=== PATIENT | male | born 1955 | race Caucasian/White ===

== ENCOUNTER 2023-10-11 16:16 | Inpatient (IN) | payer MEDICARE, OTHER, SELFPAY ==
[2023-10-11] VITALS (10 sets, daily range): BP systolic 120–166; BP diastolic 61–92; BMI 34.1; BMI 32.4
[2023-10-11 11:51] LABS: % Eosinophils 1.2 % (0-6); % Immature Granulocytes 0.4 % (0-0.5); % Lymphocytes 23.3 % (20.5-51.1); % Monocytes 6.8 % (1.7-9.3); % Neutrophils 67.3 % (42.2-75.2); Absolute Basophils 0.1 10^3/uL (0-0.2); Absolute Eosinophils 0.1 10^3/uL (0-0.7); Absolute Lymphocytes 1.7 10^3/uL (1.2-3.4); Absolute Monocytes 0.5 10^3/uL (0.1-0.6); Absolute Neutrophils 4.9 10^3/uL (1.4-6.5); Hematocrit 44.6 % (39.0-52.0); Hemoglobin 14.9 g/dL (13.0-18.0); Mean Corp Hgb Conc. 33.4 g/dL (33.0-37.0); Mean Corpuscular Hgb 27.8 pg (27.0-31.0); Mean Corpuscular Volume 83.2 fL (80.0-94.0); Mean Platelet Volume 9.5 fL (7.4-10.4); Nucleated Red Blood Cells % 0 % (-); Platelet Count 206 10^3/uL (130-400); Red Blood Cell Count 5.36 10^6/uL (4.70-6.10); Red Cell Dist. Width 13.6 % (11.5-14.5); White Blood Cell Count 7.3 10^3/uL (4.8-10.8)
[2023-10-11 12:17] LABS: ALT (SGPT) 29 U/L (0-50); AST (SGOT) 29 U/L (17-59); Albumin 4.8 g/dl (3.5-5.0); Alkaline Phosphatase 79 U/L (38-126); Blood Urea Nitrogen 22 mg/dl (9-20); Calcium 10.2 mg/dl (8.4-10.2); Carbon Dioxide 25 mmol/L (22-30); Chloride 102 mmol/L (98-107); Glucose 118 mg/dl (70-99); Potassium 5.1 mmol/L (3.5-5.1); Sodium 137 mmol/L (135-145); Total Bilirubin 0.8 mg/dl (0.2-1.3); Total Protein 7.8 g/dl (6.3-8.2); Troponin I < 0.012 ng/ml; eGFR > 60.00
--- NOTE | 2023-10-11 14:15 | ED.GENMED ---
History of Present Illness
General
Chief Complaint: Chest Pain
Source: patient and family
Exam Limitations: none
Time Seen by Provider: 10/11/23 12:50
Nursing documentation reviewed up to this point in time: agreed with
Travel History
Have you had any contact with someone who has COVID-19?: No
Do you have any symptoms of coronavirus? Fever > 100 degrees, chills, cough, shortness of breath, sore throat, loss of taste or smell, muscle aches, or headache?: No
History of Present Illness
History of Present Illness:
67-year-old male with past ministry of CAD status post stent last year, hyperlipidemia presenting to the emergency department today with concerns of chest pain a few days ago went to [facility] at the time had elevated troponin levels and
was admitted to get a heart catheterization but left AMA. Levels were elevated to 5 times the normal limit. He claims that his initial severe chest pain has improved but he does have some mild ongoing left-sided chest pain no shortness of breath
or additional concerns at this time.
Review of Systems
Review of Systems
Allergies reviewed?: Yes
All Other Systems: ROS reviewed and negative except as documented in HPI and ROS
Phy Exam
Physical Exam
Physical Exam:
GENERAL: Alert , in no apparent distress
EYE: pupils equal and reactive
NECK: Supple, no significant adenopathy.
ENT: o/p clr, mmm.
CARDIAC: Regular rate and rhythm .
LUNGS: Clear breath sounds bilaterally, no acute respiratory distress, no wheezes/rales/rhonchi
ABDOMEN: Soft, without focal tenderness, no r/g, no cvat
NEUROLOGICAL: Alert and oriented, no focal neuro deficits
SKIN: Warm and dry, skin intact.
MUSCULOSKELETAL: No edema, well perfused.
PSYCH: Normal and appropriate interaction.
Scores
Heart Score for Chest Pain Patients
STEMI patient?: No
History: Moderately Suspicious
ECG: Nonspecific Repolarization
Age: >/= 65 years
Risk Factors: >/= 3 Risk Factors or History of CAD
Troponin: </= Normal Limit
Heart Score for Chest Pain Patients: 6
Heart Score Risk: 20.3% MACE over next 6 weeks
Course
Orders/Labs/Results
Orders:
Orders
10/11/23 11:31
Electrocardiogram (*1) Urgent
Reason for Study: Chest Pain
10/11/23 11:32
EKG- Treatment ONCE
10/11/23 11:42
Complete Blood Count/With Diff Urgent
Comprehensive Metabolic Panel Urgent
Troponin I Urgent
10/11/23 12:53
Chest [CR Chest - 2 Views ] Urgent
Comment:
Reason For Exam: cp
Abnormal Lab Results
10/11/23
11:42
BUN 22 H mg/dl
(9-20)
Glucose 118 H mg/dl
(70-99)
10/11/23 11:42
10/11/23 11:42
Vital Signs
Initial and Last Documented VS:
Initial Vital Signs
Temp Pulse Resp BP Pulse Ox
98.1 F 62 18 160/80 100
10/11/23 11:32 10/11/23 11:32 10/11/23 11:32 10/11/23 11:32 10/11/23 11:32
Last Documented Vital Signs
Temp Pulse Resp BP Pulse Ox
98.1 F 62 18 160/80 99
10/11/23 11:32 10/11/23 11:32 10/11/23 11:32 10/11/23 11:32 10/11/23 13:27
MDM/Problems Addressed
MDM/Problems Addressed:
67-year-old male presenting to the emergency department today with concerns of left-sided chest pain ongoing today severe episode a few days ago diagnosed with likely heart attack was scheduled to the heart catheterization today at [facility]
Hospital but left AMA to come here. Here patient generally well-appearing claims have mild symptoms at this time EKG is nonischemic and troponin is negative. Old records were received that did show elevated troponin levels a few days ago.
Considering his history and potential cardiac event at that time plan to admit for further evaluation and cardiology consultation.
*Critical Care Note
Total Time (30-74mins, 75-104mins- exclusive of procedures): Not Applicable
ED Attending Note
-
Portions of this chart may have been created with voice recognition software.� Occasional wrong word or��sound alike� substitutions may have occurred due to the inherent limitations of voice recognition software.
Discharge Plan
Departure
Patient Disposition: Admit
Date of Disposition: 10/11/23
Time of Disposition: 14:17
Admit to: Telemetry
Admit to doctor: [place]
Presentation/result/management discussed w/ accepting MD/DO: Hospitalist
Patient with high blood pressure during this ER visit?: No
Condition: Good
Covid-19: Not Applicable
Discharge Problem:
Chest pain
Prescriptions:
No Action
tamsulosin 0.4 mg capsule
0.4 mg PO DAILY
amlodipine 10 mg tablet
5 mg PO DAILY
olmesartan 40 mg tablet
40 mg PO DAILY
Toujeo Max U-300 SoloStar 300 unit/mL (3 mL) insulin pen
40 unit SC HS
ascorbic acid (vitamin C) [Vitamin C] 1,000 mg Tablet
1,000 mg PO QPM
cyanocobalamin (vitamin B-12) 1,000 mcg Tablet
1,000 mcg PO QPM
therapeutic multivitamin Tablet
1 tab PO DAILY
cholecalciferol (vitamin D3) [Vitamin D3] 25 mcg (1,000 unit) Tablet
25 mcg PO QPM
Ozempic 1 mg/dose (4 mg/3 mL) pen injector
1 mg SC SA
atorvastatin 40 mg Tablet
40 mg PO QPM Qty: 90 5RF
nitroglycerin 0.4 mg Tablet, Sublingual
0.4 mg sublingual [id number] PRN (Reason: chest pain) Qty: 25 5RF
aspirin 81 mg Tablet,Chewable
81 mg PO DAILY Qty: 1 0RF
clopidogrel [Plavix] 75 mg tablet
75 mg PO DAILY Qty: 30 0RF
omeprazole 40 mg Capsule,Delayed Release(Dr/Ec)
40 mg PO QPM
metoprolol succinate 50 mg tablet extended release 24 hr
50 mg PO QPM
Referrals:
UNKNOWN - PT DOES,NOT KNOW [Family Provider] -
Interventions
Interventions:
*Risk Screen - Suicide Last Done: 10/11/23 11:33
*General Assessment Last Done: 10/11/23 11:33
*Neglect/Abuse Screening Last Done: 10/11/23 11:33
ED- Fall Risk Assessment Last Done: 10/11/23 13:27
*ED COVID-19 Vaccine History Last Done: 10/11/23 11:33
ED- Cardiac Assessment Last Done: 10/11/23 13:27
Discharge Date and Time
Print Language: YI
--- NOTE | 2023-10-11 14:18 | CON.CAR ---
Addendum entered and electronically signed by Emmett Daniels MD 10/11/23 17:51:
I saw and examined the patient.
The FLOOR REPRESENTATIVE's note was reviewed and I agree with the note.
Comment: DAPT stopped at the one year nikolay and now with an apparent NSTEMI several days ago and left AMA. Now with recurernt chest pain. Will restarte clopidogrel, place on IV heparin and he agreed to proceed to predischarge cor angio.
Original Note:
Consultation
Consultation Request
Date/Time Consultation Requested: 10/11/23 1320
Date/Time Consultation Performed: 10/11/23 1400
Requesting Provider: Jg LIPSCOMB
Performing Provider: Niki MINA for Dr. Daniels
Reason for Consultation: Chest pain
Medical History
-
Chief Complaint: chest pain
History of Present Illness:
67 y/o male with CAD s/p BAO to mid LAD and proximal RCA (06/12/22), hypertension, dyslipidemia, DM, CKD3A, former smoker, gastric cancer s/p resection who is here for evaluation of chest discomfort. Briefly, patient developed left-sided chest
tightness on Wednesday. He wasn't doing anything particularly active. It felt a big like his symptoms prior to stenting 05/2022. It lasted about 1/2 hour, then he took a nitro and it resolved. He went to [facility], where he was kept
overnight. TropT generation 5 were 38, 50, 71, 73 (<19 normal). He tells me he was loaded with full dose aspirin and 600 mg Plavix, and plan was for echo Sat and cath today, but he left AMA on Wednesday because he didn't feel comfortable with the
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 Schultz). He is here today since he has continued to have left-sided chest sensation since Wednesday. It is no longer the tightness and feels more like a very mild pressure. Nothing
has made it better or worse. Trop and EKG her are completely normal.
Past Medical History
Past Medical History: CAD, Cancer, HTN, Hypercholesterolemia, NIDDM and Other (as above)
Social History
Tobacco: Former Smoker
Family History
Family History: Reviewed & Not Pertinent
Allergies / Home Medications
Allergy/AdvReac Type Severity Reaction Status Date / Time
No Known Allergies Allergy Verified 10/11/23 11:32
�Medication �Instructions �Recorded �Confirmed �Type
amlodipine 5 mg tablet 5 mg PO DAILY Blood pressure 06/16/22 11/10/22 History
cholecalciferol (vitamin D3) 25 25 mcg PO QPM Supplement 06/16/22 11/10/22 History
mcg (1,000 unit) tablet (Vitamin
D3)
cyanocobalamin (vitamin B-12) 1,000 mcg PO QPM Supplement 06/16/22 11/10/22 History
1,000 mcg tablet
Jardiance 10 mg daily PO
olmesartan 40 mg tablet 40 mg PO DAILY Blood pressure 06/16/22 11/10/22 History
semaglutide 1 mg/dose (4 mg/3 mL) 1 mg SC SA Diabetes 06/16/22 11/10/22 History
subcutaneous pen injector (Ozempic)
tamsulosin 0.4 mg capsule 0.4 mg PO DAILY Urinary issue 06/16/22 11/10/22 History
therapeutic multivitamin 1 tab PO DAILY Supplement 06/16/22 11/10/22 History
aspirin 81 mg chewable tablet 81 mg PO DAILY #1 tab 06/17/22 11/10/22 Rx
atorvastatin 40 mg tablet 40 mg PO QPM #90 tabs 06/17/22 11/10/22 Rx
nitroglycerin 0.4 mg sublingual 0.4 mg sublingual [id number] PRN 06/17/22 11/10/22 Rx
tablet chest pain #25 tabs
metoprolol succinate 50 mg 50 mg PO QPM 11/10/22 11/10/22 History
tablet,extended release 24 hr
omeprazole 40 mg capsule,delayed 40 mg PO QPM 11/10/22 11/10/22 History
release
Review of Systems
-
History Source: Patient
All other systems: Negative unless noted
Cardiac: Chest Pain
Physical Exam
Vital Signs
Temp Pulse Resp BP Pulse Ox
98.1 F 62 18 160/80 99
10/11/23 11:32 10/11/23 11:32 10/11/23 11:32 10/11/23 11:32 10/11/23 13:27
Lab Results
10/11/23 11:42
10/11/23 11:42
Troponin I < 0.012 ng/ml 10/11/23 11:42
Physical Exam
General: Well Developed, Well Nourished and No Apparent Distress
HEENT: Normocephalic and Anicteric
Respiratory: Clear and Non Labored Respirations
Cardiac: Regular Rhythm
Skin: Warm and Dry
Neuro: AO x 3
Psych: Calm
Impression / Plan
-
CAD, recent NSTEMI, recurrent chest discomfort:
-trops and EKG now normal (Lamin Shelton Wednesday as noted)
-known history of LAD and RCA stenting, mild residual circ disease
-continue ASA, statin, and BB. PRN nitro.
-start heparin gtt- this requires intensive monitoring
-echo and cath this admit
-cath 11/10/22: Diffuse moderate to severe calcification throughout the proximal and mid LAD. There is a patent mid LAD stent with 20% in-stent stenosis. Circumflex: Focal 40% mid circumflex stenosis just distal to the takeoff of OM 2. There is
20% circumflex stenosis just past the takeoff of OM 3. OM1 and OM 2 are very large vessels with no evidence of disease. OM 3 is small. The circumflex terminates with several small left posterolateral branches RCA: The RCA is dominant and
terminates with a small to medium sized RPDA. There is a widely patent proximal RCA stent with no restenosis
HTN:
-stable
-continue ARB, BB, and CCB and monitor
HLD:
-has been stable
-check labs
-continue statin
Hx DM:
-per IM
-check A1C
Data Reviewed
-
EKG: Tracing Personally Visualized and interpreted (NSR)
Radiology: Image Personally Visualized and interpreted (no acute disease of chest to my review)
Medical Tests (Nuc Med, Echo etc): Report Reviewed by me (echo 12/23/22: Normal left ventricular systolic function. Left ventricular ejection fraction is 60-65%. Mild concentric left ventricular hypertrophy.)
Labs: Labs Reviewed by me
[2023-10-11] MEDS: LOW STRENGTH ASPIRIN 81 MG PO (15:14)
[2023-10-11] MEDS: HEPARIN 4000 UNITS IV (15:14)
[2023-10-11] MEDS: HEPARIN 25000 UNITS/250 ML IV (15:20)
[2023-10-11 15:43] LABS: APTT 30.4 Sec (23.4-35.0)
--- NOTE | 2023-10-11 15:59 | HPS.HSE ---
Family Physician
-
Family Physician: NOT KNOW UNKNOWN - PT DOES
Chief Complaint
-
Chest pain
History of Present Illness
Patient with a history of CAD and prior coronary stents had a chest pain on Wednesday which got relieved with nitro. He has not needed to use nitro for a long time. When this happened he was worried and so he went to the nearest hospital which was
[facility]. Apparently he had an abnormal troponins and was recommended to have cardiac catheterization and then he was not comfortable with their decision making so he discharged himself AMA home on Wednesday . He called his
tour operator today as he was having some chest discomfort and they referred him to the ER.
Currently he feels a twinge of discomfort in the left chest but not like what it was on Wednesday. No associated shortness of breath. No nausea or vomiting. No sweating. No palpitations. No cough. No fever or chills.
With concerns of non-ST elevation SD over the weekend is getting admitted to the hospital for further ischemia eval. Started on IV heparin and going for cardiac catheterization.
Medical History
Past Medical History
Past Medical History: Reports CAD, HTN, Hypercholesterolemia, NIDDM and Renal Failure (ckd 3a)
Past Surgical History: Reports Other (gastric cancer - had resection -follow at [facility])
Social History
Tobacco: Former Smoker
Personal:
Living: With Family
Family History
Family History: Not pertinent
Allergies / Home Medications
Allergies reflects when Allergies were last updated in [employer].
Home Medications with original date entered in [employer]
Allergy/Medication List:
Allergies
Allergy/AdvReac Type Severity Reaction Status Date / Time
No Known Allergies Allergy Verified 10/11/23 11:32
Home Medications
amlodipine 10 mg tablet 5 mg PO DAILY Blood pressure 06/16/22
ascorbic acid (vitamin C) 1,000 mg tablet (Vitamin C) 1,000 mg PO QPM Supplement 06/16/22
cholecalciferol (vitamin D3) 25 mcg (1,000 unit) tablet (Vitamin D3) 25 mcg PO QPM Supplement 06/16/22
cyanocobalamin (vitamin B-12) 1,000 mcg tablet 1,000 mcg PO QPM Supplement 06/16/22
olmesartan 40 mg tablet 40 mg PO QPM Blood pressure 06/16/22
semaglutide 1 mg/dose (4 mg/3 mL) subcutaneous pen injector (Ozempic) 1 mg SC SA Diabetes 06/16/22
tamsulosin 0.4 mg capsule 0.4 mg PO DAILY Urinary issue 06/16/22
therapeutic multivitamin 1 tab PO DAILY Supplement 06/16/22
atorvastatin 40 mg tablet 40 mg PO QPM #90 tabs 06/17/22
nitroglycerin 0.4 mg sublingual tablet 0.4 mg sublingual [id number] PRN chest pain #25 tabs 06/17/22
metoprolol succinate 50 mg tablet,extended release 24 hr 50 mg PO QPM 11/10/22
omeprazole 40 mg capsule,delayed release 40 mg PO QPM 11/10/22
aspirin 81 mg chewable tablet 81 mg PO QPM 10/11/23
empagliflozin 10 mg tablet (Jardiance) 10 mg PO DAILY 10/11/23
sodium zirconium cyclosilicate 5 gram oral powder packet (Lokelma) 5 g PO DAILYPRN PRN potassium levels 10/11/23
Review of Systems
-
A 12 point ROS was completed and negative except as noted: Yes
Physical Exam
Vital Signs
Vital Signs
Temp Pulse Resp BP Pulse Ox
98.1 F 54 13 141/92 99
10/11/23 11:32 10/11/23 14:15 10/11/23 14:15 10/11/23 14:00 10/11/23 13:27
Physical Exam
General: No Apparent Distress
HEENT: Moist mucous membranes
Respiratory: Clear
Cardiac: S1/S2 and Regular Rhythm
GI: Soft, Non Tender, Non Distended and Normal Bowel Sounds
Musculoskeletal: No Edema
Neuro: AO x 3
Psych: Calm
Laboratory Results
-
10/11/23 11:42
10/11/23 11:42
Laboratory Results
APTT 30.4 Sec (23.4-35.0) 10/11/23 15:13
Total Bilirubin 0.8 mg/dl (0.2-1.3) 10/11/23 11:42
AST 29 U/L (17-59) 10/11/23 11:42
ALT 29 U/L (0-50) 10/11/23 11:42
Alkaline Phosphatase 79 U/L (38-126) 10/11/23 11:42
Troponin I < 0.012 ng/ml 10/11/23 11:42
Data Reviewed
-
Lab Data: Labs Reviewed by me
Impression/Plan
-
Chest discomfort with NSTEMI over the weekend -currently EKG is normal and troponin is negative. No evidence of heart failure. Admit to telemetry. Started on IV heparin. Cardiology planning on echo and cardiac catheterization. Continue with his
aspirin and beta-janey and statin. Check lipid profile.
Hypertension-continue present medication
Hyperlipidemia-continue with his home medication
Diabetes mellitus type 2-continue with his home medication. Check a hemoglobin A1c.Add SSI.
Full code
[2023-10-11] MEDS: PLAVIX 600 MG PO (18:31)
[2023-10-11] MEDS: VITAMIN C 1000 MG PO (20:19)
[2023-10-11] MEDS: LIPITOR 40 MG PO (20:19)
[2023-10-11] MEDS: PROTONIX 40 MG PO (20:19)
[2023-10-11] MEDS: VITAMIN B-12 1000 MCG PO (20:19)
[2023-10-11] MEDS: VITAMIN D3 (cholecalciferol) 25 MCG PO (20:20)
[2023-10-11] MEDS: TOPROL XL 50 MG PO (20:20)
[2023-10-11 20:23] LABS: Glucose - Point of Care 95 mg/dl (70-99)
[2023-10-11 20:30] LABS: Troponin I < 0.012 ng/ml
--- NOTE | 2023-10-11 20:30 | PTCARENOTE ---
Received patient from ER, AAOx4. Ambulating with steady gait with Heparin gtt infusing at 10mls/hr. No c/o pain at this time. Oriented to unit. Plan of care continues.
[2023-10-11 21:55] LABS: INR 1.12; PT 14.3 Sec (11.4-14.6)
[2023-10-11 21:56] LABS: APTT 48.7 Sec (23.4-35.0)
[2023-10-12] VITALS (17 sets, daily range): BP systolic 106–144; BP diastolic 60–92; BMI 32.4
[2023-10-12 00:10] LABS: Glucose - Point of Care 95 mg/dl (70-99)
[2023-10-12 05:41] LABS: APTT 57.6 Sec (23.4-35.0)
[2023-10-12 05:46] LABS: HDL Cholesterol 33 mg/dl; LDL Cholesterol, Calculated 44 mg/dl; Total Cholesterol 109 mg/dl (50-199); Triglyceride 163 mg/dl (10-149); Troponin I < 0.012 ng/ml; Very Low Density Lipoprotein 32 mg/dl (0-30)
[2023-10-12 06:25] LABS: Glucose - Point of Care 117 mg/dl (70-99)
[2023-10-12] MEDS: FLOMAX PO (08:38)
[2023-10-12] MEDS: JARDIANCE PO (08:38)
[2023-10-12] MEDS: LOW STRENGTH ASPIRIN PO (08:38)
[2023-10-12] MEDS: NORVASC PO (08:39)
[2023-10-12] MEDS: PLAVIX PO (08:39)
[2023-10-12 10:09] LABS: Glycohemoglobin (HgbA1c) 6.7 % (4.0-5.6)
--- NOTE | 2023-10-12 11:05 | W.PN.HOSP.TC ---
Today's Communication/Plan
-
Await cardiac cath
Assessment / Plan
Assessment / Plan
Chest discomfort with NSTEMI over the weekend -currently EKG is normal and troponin is negative. No evidence of heart failure. cw IV heparin. Await echo and cardiac catheterization. Continue with his aspirin and beta-janey and statin.
lipid profile noted -cw current statins.
Hypertension-continue present medication
Hyperlipidemia-continue with his home medication
Diabetes mellitus type 2-continue with his home medication. hemoglobin A1c 6.7 - cw home tx
Full code
DC based on echo and cardiac cath findings and cardiology clearance.
Anticipated Discharge: Today
Subjective/Interval History
-
Date of Service: October 12, 2023
remains chest pain-free. Not short of breath.
Objective Data
-
Labs:
Laboratory Results
10/12/23 10/12/23
04:37 11:50
APTT 57.6 H Pending
Vital Signs:
Vital Signs
Temp Pulse Resp BP Pulse Ox
98.3 F 57 20 141/76 96
10/12/23 08:44 10/12/23 08:44 10/12/23 08:44 10/12/23 08:44 10/12/23 08:44
I&O
10/11/23 10/12/23 10/13/23
06:59 06:59 06:59
Intake Total 0 / 0
Balance 0 / 0
Review of Systems
-
Abdomen/GI: Denies Abdominal Pain, Nausea or Vomiting
Neuro: Denies Dizzy
Physical Exam
-
General: No Apparent Distress
HEENT: Moist Mucous Membranes
Respiratory: Clear to Auscultation
Cardiac: Regular Rhythm and S1/S2
Neuro: AO x 3
Data Reviewed
-
Labs: Labs Reviewed by me
[2023-10-12] MEDS: NON-FORMULARY ITEM 2 MG SC (11:26)
[2023-10-12 11:29] LABS: Glucose - Point of Care 113 mg/dl (70-99)
[2023-10-12] MEDS: LOW STRENGTH ASPIRIN 81 MG PO (11:29)
[2023-10-12] MEDS: PLAVIX 75 MG PO (11:33)
[2023-10-12 11:50] LABS: APTT 70.8 Sec (23.4-35.0)
[2023-10-12 12:24] LABS: ACT-LR - POC 256 Seconds (116-155)
[2023-10-12] MEDS: TYLENOL 650 MG PO (13:00)
--- NOTE | 2023-10-12 13:24 | ITS.CL.CATH ---
Committee Member - Catheterization
Cardiac Catheterization
Procedure Report:
CARDIAC CATHETERIZATION REPORT
Date of Procedure: 10/12/2023
Referring: Emmett Daniels MD
Indication: Unstable angina with recent non-STEMI at outside hospital
HEMODYNAMIC DATA
AO: 136/70
LV: 136/10
LEFT VENTRICULOGRAPHY: Borderline mid anterolateral hypokinesis with otherwise left ventricular wall motion with EF 58%
CORONARY ANGIOGRAPHY
Dominance: Codominant
Left Main: Normal
LAD: Mild luminal irregularities proximally with a long stented segment in the mid LAD distal to the takeoff of the moderate sized first diagonal branch. There is focal 80% restenosis in the proximal portion of the stented segment. The distal LAD
has diffuse mild luminal irregularities
Circumflex: 30% distal circumflex stenosis. The large OM1 and large OM 2 have mild luminal irregularities. There is a small OM 3 and a series of left posterolateral branches with mild luminal disease. The circumflex terminates with a small left
PDA.
RCA: Small caliber dominant vessel with mild luminal irregularities. The RCA terminates with a small RPDA
Angioplasty: At the conclusion of the diagnostic study the patient underwent LAD PCI. Heparin was used for anticoagulation. A 6 Georgian EBU 3.75 guide catheter was used. A BMW wire was easily passed into the apical segment of the LAD. Direct
stenting with a 2.5 x 12 Xience BAO deployed at 14 vaibhav was followed by postdilatation with a 2.75 NC trek to 17 vaibhav. The final angiographic result was outstanding with no residual stenosis. There were no procedural complications.
Closure Device: None-the procedure was performed via the right radial artery. The Derek's test was normal prior to the procedure.
Radiation (mGy): 742
DAP (cm2.Gy): 42.0
Fluoroscopy time: 5.0 minutes
CONCLUSIONS
1: Borderline mid anterolateral hypokinesis with EF 58%
2: Severe single-vessel CAD as described
3. Successful stenting of 80% focal in-stent restenosis of mid LAD (BAO May 2022) with placement of 2.5 x 12 Xience BAO postdilated with 2.75 mm noncompliant balloon
4. Recommend dual antiplatelet therapy for 6 months. This patient is at significantly elevated bleeding risk given his history of gastric cancer resection. Therefore would limit DAPT to 6 months then treat with aspirin alone
Copy to: Ayden Schultz MD, Nigel Candelario DO
Brock Arias MD, [facility], [facility]
--- NOTE | 2023-10-12 16:53 | CM ---
IA not completed pt at cardiac cath today.In IVU now.
--- NOTE | 2023-10-12 17:51 | PTCARENOTE ---
Assumed care of pt from CCL RN post re-stent to LAD. Pt arrives awake and alert, Ox3. VSS, CM shows NSR, POX 98% on RA. Right radial site remains CDI with good CMS throughout limb. He denies any pain or discomfort, ambulating about room. Sister
at bedside.
[2023-10-12 18:00] LABS: Glucose - Point of Care 94 mg/dl (70-99)
[2023-10-12] MEDS: NSS 1000 IV (18:00)
--- NOTE | 2023-10-12 18:12 | PTCARENOTE ---
Protocol IV up and infusing as ordered.
[2023-10-12] MEDS: PROTONIX 40 MG PO (18:23)
[2023-10-12] MEDS: LIPITOR 40 MG PO (18:23)
[2023-10-12] MEDS: VITAMIN D3 (cholecalciferol) 25 MCG PO (18:23)
[2023-10-12] MEDS: TOPROL XL 50 MG PO (18:23)
[2023-10-12] MEDS: VITAMIN B-12 1000 MCG PO (18:24)
[2023-10-12] MEDS: VITAMIN C 1000 MG PO (18:24)
--- NOTE | 2023-10-12 21:04 | PTCARENOTE ---
Patient ambulating self in hallways. Denies any pain or SOB. Tele monitor shows SR -Sinus gorge. VSS. Right radial dressing intact, no hematoma noted at this time. Positive radial pulse. Verbalized understanding w/ activity restrictions in regards
to right radial. Call francisco in reach.
[2023-10-12 21:42] LABS: Glucose - Point of Care 123 mg/dl (70-99)
[2023-10-13 04:10] VITALS: BP 154/75
[2023-10-13 04:49] LABS: % Basophils 0.8 % (0-2); % Eosinophils 1.9 % (0-6); % Immature Granulocytes 0.5 % (0-0.5); % Lymphocytes 31.4 % (20.5-51.1); % Monocytes 8.6 % (1.7-9.3); % Neutrophils 56.8 % (42.2-75.2); Absolute Basophils 0.1 10^3/uL (0-0.2); Absolute Eosinophils 0.1 10^3/uL (0-0.7); Absolute Lymphocytes 2.4 10^3/uL (1.2-3.4); Absolute Monocytes 0.7 10^3/uL (0.1-0.6); Absolute Neutrophils 4.3 10^3/uL (1.4-6.5); Hematocrit 44.8 % (39.0-52.0); Mean Corp Hgb Conc. 33.5 g/dL (33.0-37.0); Mean Corpuscular Hgb 27.7 pg (27.0-31.0); Mean Corpuscular Volume 82.7 fL (80.0-94.0); Mean Platelet Volume 9.3 fL (7.4-10.4); Nucleated Red Blood Cells % 0 % (-); Platelet Count 202 10^3/uL (130-400); Red Blood Cell Count 5.42 10^6/uL (4.70-6.10); Red Cell Dist. Width 13.8 % (11.5-14.5); White Blood Cell Count 7.5 10^3/uL (4.8-10.8)
--- NOTE | 2023-10-13 05:06 | W.PN.UPDATE ---
Update Note
Progress Note Update
Notified by RN that pt admitted to 'rolling ' oob a few hours ago (pt states around 1am)
On eval pt able to ANGEL. Stated he wasn't used to a smaller bed and rolled out. He did land on his right wrist where he had his right cath faustin yesterday. Denies pain. +pulses.
[2023-10-13 05:18] LABS: Blood Urea Nitrogen 20 mg/dl (9-20); Calcium 10.1 mg/dl (8.4-10.2); Carbon Dioxide 27 mmol/L (22-30); Chloride 103 mmol/L (98-107); Estimated Creatinine Clearance 65 ml/min; Glucose 108 mg/dl (70-99); HDL Cholesterol 32 mg/dl; LDL Cholesterol, Calculated 28 mg/dl; Potassium 5.2 mmol/L (3.5-5.1); Sodium 140 mmol/L (135-145); Total Cholesterol 102 mg/dl (50-199); Triglyceride 210 mg/dl (10-149); Very Low Density Lipoprotein 42 mg/dl (0-30); eGFR > 60.00
--- NOTE | 2023-10-13 05:26 | PTCARENOTE ---
Upon checking patients routine vital signs at 04:00 patient reported that at approximately 01:00 he rolled out of bed and broke his fall with his right arm. Patient reports landing on the floor, denies hitting his head or sustaining any other
injuries. On physical assessment no injuries were assessed. Right radial dressing intact, no hematoma or drainage noted at this time. Right radial pulse positive. BP 154/75, HR 59, and sating 98% RA. Patient denies any pain or discomfort. Tele
remains Sinus Kurtis. Gogo MINA notified, and at bedside to assess patient. No new orders obtained at this time. Nursing supervisor cutting and sewing room made aware. Patient made a fall risk, and advised patient to let nursing staff know if any changes or develops
any pain. Call francisco in reach.
[2023-10-13 07:41] VITALS: BP 149/74
[2023-10-13 07:45] LABS: Glucose - Point of Care 116 mg/dl (70-99)
--- NOTE | 2023-10-13 08:24 | W.PN.CD ---
Today's Communication / Plan
-
Recheck potassium level.
Discharge planning.
Impression / Plan
-
Impression/Plan: 67 y/o male with HTN, HLD, CKD3A, NIDDM and CAD s/p prior PCI (mLAD, 06/12/2022), recent NSTEMI at [facility] (left AMA) now admitted with recurrent chest discomfort.
#CAD, recent NSTEMI, recurrent chest discomfort:
-Troponin and EKG now normal ([facility] Wednesday as noted).
-Known history of LAD and RCA stenting, mild residual circ disease.
-S/P PCI of discrete 80% mLAD ISR (Xience Skypoint 2.5 x 12 BAO, post dilated with 2.75 NC balloon).
-Continue ASA, statin, and BB. PRN nitro.
-TTE shows preserved systolic function.
#Fall
-Acute.
-No residual deficits or injuries.
#HTN:
-Chronic, stable.
-Continue ARB, BB, and CCB and monitor.
#FEN/Renal
-Stable creatinine (1.3).
-Potassium 5.2. Recheck.
#HLD:
-Chronic, stable.
-Total cholesterol = 102, LDL = 28 (!), HDL = 32, Triglycerides = 210.
-LDL is at goal (< 55).
-Next goal is triglycerides < 150. Consider outpatient icosapent ethyl.
#NIDDM:
-Chronic, stable.
-HbA1c = 6.7%.
-Continue empagliflozin and semaglutide.
#Dispo
-IVU status.
-Full code.
-Discharge planning.
Subjective/Interval History:
PCI of focal 80% LAD stent ISR yesterday.
Patient rolled out of bed last night. 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
Potassium 5.2.
DATA:
TTE, 10/12/2023:
CONCLUSIONS
Normal biventricular size and systolic function without regional wall motion
abnormality.
Mild concentric left ventricular hypertrophy.
No significant valvular disease.
No prior study available for comparison.
Cardiac Catheterization/PCI, 10/12/2023:
CORONARY ANGIOGRAPHY
Dominance: Codominant
Left Main: Normal
LAD: Mild luminal irregularities proximally with a long stented segment in the mid LAD distal to the takeoff of the moderate sized first diagonal branch. There is focal 80% restenosis in the proximal portion of the stented segment. The distal LAD
has diffuse mild luminal irregularities
Circumflex: 30% distal circumflex stenosis. The large OM1 and large OM 2 have mild luminal irregularities. There is a small OM 3 and a series of left posterolateral branches with mild luminal disease. The circumflex terminates with a small left
PDA.
RCA: Small caliber dominant vessel with mild luminal irregularities. The RCA terminates with a small RPDA
Angioplasty: At the conclusion of the diagnostic study the patient underwent LAD PCI. Heparin was used for anticoagulation. A 6 Mong[place]ian EBU 3.75 guide catheter was used. A BMW wire was easily passed into the apical segment of the LAD. Direct
stenting with a 2.5 x 12 Xience BAO deployed at 14 vaibhav was followed by postdilatation with a 2.75 NC trek to 17 vaibhav. The final angiographic result was outstanding with no residual stenosis. There were no procedural complications.
Physical Exam
Vital Signs/Labs
Vital Signs
Temp Pulse Resp BP Pulse Ox
36.8 C 62 16 154/75 96
10/13/23 07:41 10/13/23 07:41 10/13/23 07:41 10/13/23 04:10 10/13/23 07:41
10/11/23 10/12/23 10/13/23
11:59 11:59 11:59
Actual Weight 99.422 kg
10/13/23 04:17
10/13/23 04:17
PT 14.3 Sec (11.4-14.6) 10/11/23 21:27
INR 1.12 10/11/23 21:27
APTT 70.8 Sec (23.4-35.0) H 10/12/23 11:31
Triglycerides 210 mg/dl (10-149) H 10/13/23 04:17
LDL Cholesterol, Calc 28 mg/dl 10/13/23 04:17
VLDL Cholesterol, Calc 42 mg/dl (0-30) H 10/13/23 04:17
HDL Cholesterol 32 mg/dl 10/13/23 04:17
LAB Results
10/11/23 10/11/23 10/12/23
11:42 19:58 04:37
Troponin I < 0.012 < 0.012 < 0.012
Physical Exam
Constitutional: No acute distress and Comfortable
EENT: Anicteric and Moist mucous membranes
Cardiovascular: Rhythm & rate is regular, Pedal edema is absent, JVD pressure is normal, S1S2 is normal and Murmur/rub/gallop absent
Respiratory: Respiratory effort normal, Lungs clear to auscul., Wheeze Absent, Crackles Absent and Rhonchi Absent
GI: Soft, Distention absent, Flat, Non tender and Normal bowel sounds
Neuro/Psych: AO x 3
Other: Cath Site (Right radial access site is C/D/I.)
Data Reviewed
-
Date of Service: October 13, 2023
Medical Decision Making: Reviewed Test Results, Independent Historian Assessment and Test Interpretation
EKG: Tracing Personally Visualized and interpreted and Report Reviewed by me
Echo: Report Reviewed by me
X-Ray/CT/US/MRI/NUC/PET: Image Personally Visualized and interpreted and Report Reviewed by me
Medical Tests (PFT, Pathology etc): Image Personally Visualized and interpreted and Report Reviewed by me
Labs: Labs Reviewed by me
[2023-10-13] MEDS: FLOMAX 0.400000000000000022 MG PO (08:42)
[2023-10-13] MEDS: JARDIANCE 10 MG PO (08:42)
[2023-10-13] MEDS: NORVASC 5 MG PO (08:42)
[2023-10-13] MEDS: PLAVIX 75 MG PO (08:43)
[2023-10-13] MEDS: LOW STRENGTH ASPIRIN 81 MG PO (08:43)
[2023-10-13 11:21] VITALS: BP 155/83
--- NOTE | 2023-10-13 11:39 | W.PN.HOSP.TC ---
Today's Communication/Plan
-
Repeat K
DC planning
Assessment / Plan
Assessment / Plan
Chest discomfort with NSTEMI over the weekend -currently EKG is normal and troponin is negative. No evidence of heart failure. Continue with his aspirin and beta-janey and statin. lipid profile noted -cw current statins.
S/P PCI of discrete 80% mLAD ISR (Xience Skypoint 2.5 x 12 BAO, post dilated with 2.75 NC balloon) 10/10
cw DAPT per cards
TTE shows preserved systolic function.
Hypertension-continue present medication
Hyperlipidemia-continue with his home medication
Diabetes mellitus type 2-continue with his home medication. hemoglobin A1c 6.7 - cw home tx
Full code
DC home after repeat K check
Anticipated Discharge: Today
Subjective/Interval History
-
Date of Service: October 13, 2023
no further chest pains
Objective Data
-
Labs:
Laboratory Results
10/13/23 10/13/23
04:17 11:37
WBC 7.5
Hgb 15.0
Hct 44.8
Plt Count 202
Sodium 140 Pending
Potassium 5.2 H Pending
Chloride 103 Pending
Carbon Dioxide 27 Pending
BUN 20 Pending
Creatinine 1.3 Pending
Glucose 108 H Pending
Calcium 10.1 Pending
Vital Signs:
Vital Signs
Temp Pulse Resp BP Pulse Ox
98.3 F 66 18 149/74 97
10/13/23 11:21 10/13/23 10:00 10/13/23 11:21 10/13/23 08:42 10/13/23 11:21
I&O
10/12/23 10/13/23 10/14/23
06:59 06:59 06:59
Intake Total 0 / 0 745 / 745
Balance
Review of Systems
-
Respiratory: Denies Trouble Breathing
Cardiac: Denies Palpitations
Neuro: Denies Dizzy
Physical Exam
-
General: No Apparent Distress
HEENT: Moist Mucous Membranes
Respiratory: Clear to Auscultation
Cardiac: Regular Rhythm and S1/S2
Neuro: AO x 3
Psych: Calm
Data Reviewed
-
Labs: Labs Reviewed by me
--- NOTE | 2023-10-13 11:40 | PTCARENOTE ---
received patient this am, ambulating in [facility]. well. monitor shows NSR, VSS. right radial D/I, distal pulse palpable. patient is hoping to be D/C to home today.
--- NOTE | 2023-10-13 11:43 | CM ---
CM following for DC planning needs.
Met w/ patient at bedside to complete initial assessment.
Pt. resides alone (sometimes w/ adult son) in a private, multi level home. He is functionally indep. at baseline without the use of any assisted device.
Pt. has Rx plan ([facility]) and uses [facility] in [place] for prescription needs.
Anticipated DC plan is for home, no needs.
CM to cont. to follow.
[2023-10-13 12:04] LABS: Glucose - Point of Care 83 mg/dl (70-99)
[2023-10-13 12:36] LABS: Blood Urea Nitrogen 19 mg/dl (9-20); Calcium 9.8 mg/dl (8.4-10.2); Carbon Dioxide 28 mmol/L (22-30); Chloride 100 mmol/L (98-107); Estimated Creatinine Clearance 70 ml/min; Glucose 67 mg/dl (70-99); Potassium 4.4 mmol/L (3.5-5.1); Sodium 138 mmol/L (135-145); eGFR > 60.00
--- NOTE | 2023-10-13 13:30 | W.DS.TRANS ---
DC Summary - [employer] [facility]
-
Discharge Instructions:
Discharge Diagnosis/Procedures Angioplasty and stent to Left Anterior
Descending artery
Diet Low Cholesterol
Driving Restrictions No driving for 24 hours
Blood Work BMP blood work in one week -arrange it through
your PCP
Other Services Cardiac Rehab
Instructions:
Stand-Alone Forms: DC Instructions- Cath/EP Lab
Changes to Home Medications: Yes
Discharge Medications:
DC Medications w/original date entered in [facility]
amlodipine 10 mg tablet 5 mg PO DAILY Blood pressure 06/16/22
ascorbic acid (vitamin C) 1,000 mg tablet (Vitamin C) 1,000 mg PO QPM Supplement 06/16/22
cholecalciferol (vitamin D3) 25 mcg (1,000 unit) tablet (Vitamin D3) 25 mcg PO QPM Supplement 06/16/22
cyanocobalamin (vitamin B-12) 1,000 mcg tablet 1,000 mcg PO QPM Supplement 06/16/22
olmesartan 40 mg tablet 40 mg PO QPM Blood pressure 06/16/22
semaglutide 1 mg/dose (4 mg/3 mL) subcutaneous pen injector (Ozempic) 1 mg SC SA Diabetes 06/16/22
tamsulosin 0.4 mg capsule 0.4 mg PO DAILY Urinary issue 06/16/22
therapeutic multivitamin 1 tab PO DAILY Supplement 06/16/22
atorvastatin 40 mg tablet 40 mg PO QPM #90 tabs 06/17/22
nitroglycerin 0.4 mg sublingual tablet 0.4 mg sublingual [id number] PRN chest pain #25 tabs 06/17/22
metoprolol succinate 50 mg tablet,extended release 24 hr 50 mg PO QPM Blood Pressure 11/10/22
omeprazole 40 mg capsule,delayed release 40 mg PO QPM Gastrointestinal Issue 11/10/22
aspirin 81 mg chewable tablet 81 mg PO QPM Blood Clot Prevention/Tx 10/11/23
empagliflozin 10 mg tablet (Jardiance) 10 mg PO DAILY Diabetes 10/11/23
clopidogrel 75 mg tablet 75 mg PO DAILY #30 tabs 10/13/23
Home Medication Changes
New med - plavix
Pending Results: No
--- NOTE | 2023-10-13 14:07 | PTCARENOTE ---
D/C instructions given to patient and sister, verbalizes understanding. INT D/C;d telemetry d/C'd, personal belongings packed and sent home with patient. D/C to home via wc accompanied by staff.
== END 2023-10-13 14:42 | disposition home or self-care (01) | DRG 322 ==
LOC: IVU 16:16
PROVIDERS: Emergency Medicine; Internal Medicine Cardiovascular Disease; Nurse Practitioner; ADMITTING PHYSICIAN Internal Medicine; CONSULT PHYSICIAN Internal Medicine Cardiovascular Disease; EMERGENCY PHYSICIAN Emergency Medicine
PROC: B2111ZZ Fluoroscopy of Multiple Coronary Arteries using Low Osmolar Contrast (ICD-10-PCS; 2023-10-12)
PROC: 4A023N7 Measurement of Cardiac Sampling and Pressure, Left Heart, Percutaneous Approach (ICD-10-PCS; 2023-10-12)
PROC: 027034Z Dilation of Coronary Artery, One Artery with Drug-eluting Intraluminal Device, Percutaneous Approach (ICD-10-PCS; 2023-10-12)
PROC: B2151ZZ Fluoroscopy of Left Heart using Low Osmolar Contrast (ICD-10-PCS; 2023-10-12)
DX: I21.4 Non-ST elevation (NSTEMI) myocardial infarction (principal); T82.855A Stenosis of coronary artery stent, initial encounter; I25.110 Atherosclerotic heart disease of native coronary artery with unstable angina pectoris; Y71.8 Miscellaneous cardiovascular devices associated with adverse incidents, not elsewhere classified; E11.22 Type 2 diabetes mellitus with diabetic chronic kidney disease; N18.31 Chronic kidney disease, stage 3a; I12.9 Hypertensive chronic kidney disease with stage 1 through stage 4 chronic kidney disease, or unspecified chronic kidney disease; E78.00 Pure hypercholesterolemia, unspecified; Z85.028 Personal history of other malignant neoplasm of stomach; Z79.82 Long term (current) use of aspirin; Z79.84 Long term (current) use of oral hypoglycemic drugs
CPT/HCPCS: 71046; 80048; 80053; 80061; 82962; 83036; 84484; 85025; 85347; 85610; 85730; 93005; 93306; 93458; 96374; 99285; C1725; C1769; C1874; C1894; C9600; Q9967